=== PATIENT | female | born 1980 | race African-American/Black ===

== ENCOUNTER 2016-09-28 13:07 | Emergency (ER) | payer BC ==
[~2016-09-28 13:07] MED LIST: ALEVE220 MG PO; DEPO-ESTRADIO1 MG/ML IM; NORCO1 TAB PO; PR25 PO
== END 2016-09-28 14:30 | disposition home or self-care (01) ==
LOC: ER 13:07
DX: J11.1 Influenza due to unidentified influenza virus with other respiratory manifestations (principal); Z87.442 Personal history of urinary calculi; Z79.899 Other long term (current) drug therapy
CPT/HCPCS: 71020; 87070; 87880; 93005; 99284